=== PATIENT | female | born 1940 | race Caucasian/White ===

== ENCOUNTER → 2017-04-04 | Outpatient (CLI) | payer MEDICARE | END | disposition home or self-care (01) | LOC: RAD 13:30 | DX: M47.896 Other spondylosis, lumbar region (principal); M25.78 Osteophyte, vertebrae ==

== ENCOUNTER → 2017-06-21 | Outpatient (CLI) | payer MEDICARE ==
[2017-06-21 12:23] LABS: BASO % 0.5 % (0.0-1.0); EOS # 0.5 10*3/uL (0.0-0.4); EOS % 5.4 % (1.0-4.0); HEMATOCRIT 39.8 % (37.0-47.0); HEMOGLOBIN 13.2 g/dl (12.0-16.0); LYMPH # 1.5 10*3/uL (1.3-4.4); LYMPH % 18.2 % (27.0-41.0); MEAN CELL VOLUME 89.4 fl (81.0-99.0); MEAN CORPUSCULAR HGB 29.7 pg (27.0-31.0); MEAN CORPUSCULAR HGB CONC 33.2 g/dl (33.0-37.0); MEAN PLATELET VOLUME 10.3 fl (9.6-12.3); MONO # 0.6 10*3/uL (0.1-1.0); MONO % 6.9 % (3.0-9.0); NEUT # 5.8 10*3/uL (2.3-7.9); NEUT % 68.6 % (47.0-73.0); PLATELET COUNT AUTOMATED 256 10*3/uL (130-400); RED BLOOD COUNT 4.45 10*6/uL (4.10-5.10); RED CELL DISTRI WIDTH 13.2 % (0-14.5); WHITE BLOOD COUNT 8.4 10*3/uL (4.8-10.8)
[2017-06-21 12:38] LABS: ALBUMIN 3.5 gm/dl (3.1-4.5); CREATININE 1.44 mg/dL (0.55-1.02); POTASSIUM 3.9 mmol/L (3.5-5.1); TOTAL PROTEIN 7.8 gm/dL (6.4-8.2)
== END | disposition home or self-care (01) ==
LOC: LAB 11:10
PROVIDERS: Student in an Organized Health Care Education/Training Program
DX: I10 Essential (primary) hypertension (principal); R60.9 Edema, unspecified; R06.02 Shortness of breath

== ENCOUNTER → 2017-06-29 | Outpatient (CLI) | payer MEDICARE | END | disposition home or self-care (01) | LOC: CARD 15:45 | DX: R06.02 Shortness of breath (principal) ==

== ENCOUNTER → 2017-11-02 | Outpatient (CLI) | payer MEDICARE ==
[2017-11-02 13:33] LABS: BILIRUBIN NEGATIVE (NEGATIVE); BLOOD TRACE-INTACT (NEGATIVE); CLARITY SL CLOUDY (CLEAR); COLOR YELLOW (YELLOW); GLUCOSE NEGATIVE (NEGATIVE); KETONE NEGATIVE (NEGATIVE); LEUKO ESTERASE NEGATIVE (NEGATIVE); NITRITE NEGATIVE (NEGATIVE); PH 5.5 (5.0-9.0); UROBILINOGEN 0.2 E.U./dl (0.2-1.0)
[2017-11-02 13:37] LABS: BASO % 0.5 % (0.0-1.0); EOS # 0.4 10*3/uL (0.0-0.4); HEMATOCRIT 40.5 % (37.0-47.0); HEMOGLOBIN 13.4 g/dl (12.0-16.0); LYMPH # 1.9 10*3/uL (1.3-4.4); MEAN CELL VOLUME 88.6 fl (81.0-99.0); MEAN CORPUSCULAR HGB 29.3 pg (27.0-31.0); MEAN CORPUSCULAR HGB CONC 33.1 g/dl (33.0-37.0); MEAN PLATELET VOLUME 10.7 fl (9.6-12.3); MONO # 0.6 10*3/uL (0.1-1.0); MONO % 7.5 % (3.0-9.0); NEUT # 5.1 10*3/uL (2.3-7.9); NEUT % 63.4 % (47.0-73.0); PLATELET COUNT AUTOMATED 231 10*3/uL (130-400); RED BLOOD COUNT 4.57 10*6/uL (4.10-5.10); RED CELL DISTRI WIDTH 13.3 % (0-14.5)
[2017-11-02 13:47] LABS: URINE CREATININE RANDOM 84.9 mg/dL
[2017-11-02 13:56] LABS: BACTERIA 2+; WBC 0-2 wbc/hpf (0-5)
[2017-11-02 14:07] LABS: ALBUMIN 3.8 gm/dl (3.1-4.5); CREATININE 1.32 mg/dL (0.55-1.02); PHOSPHOROUS 3.6 mg/dL (2.5-4.9); POTASSIUM 4.4 mmol/L (3.5-5.1)
[2017-11-02 14:30] LABS: FERRITIN 225.4 ng/mL (10.0-291.0); PTH INTACT 75.7 pg/mL (18.5-88.0); VITAMIN D, 25-HYDROXY 13.3 ng/mL (30-100)
== END | disposition home or self-care (01) ==
LOC: LAB 12:29 → US 12:30
PROVIDERS: Internal Medicine Nephrology
DX: N25.81 Secondary hyperparathyroidism of renal origin (principal); E11.22 Type 2 diabetes mellitus with diabetic chronic kidney disease; D63.1 Anemia in chronic kidney disease; N18.3 Chronic kidney disease, stage 3 (moderate); N28.1 Cyst of kidney, acquired

== ENCOUNTER 2018-03-06 16:53 | Inpatient (IN) | payer MEDICARE ==
[~2018-03-06] VITALS: Ht 165.1 cm; Wt 86.7 kg
--- NOTE | ~2018-03-06 | CON ---
[place], [place] REPORT OF CONSULTATION [facility]OWN [id number] UN[facility] #: [id number] ROOM: 506 DOCTOR: [facility]ST[facility]VIS [facility] BIR[facility] [birth year] DOS: 03/08/2018 HISTORY OF PRESENT ILLNESS: A 77-year-old female here with bilateral cellulitis. The patient has cellulitis, poor peripheral circulation. The patient appears to have bilateral peripheral edema in both lower extremities and significant disease below the knee also and the flow frequencies markedly depressed, some extend the inlet and mostly the outlet vessels. Both the bilateral superficial femoral appears to be affected. Diffuse atherosclerosis of both lower extremities extends to left dorsalis pedis may be involved and could not do the intervention but knowing the flow frequencies, both lower extremities appears to be affected, even proximal to the dorsalis pedis, probably both inlet and outlet vessels. The patient is a 77-year-old female with history of diabetes, hypertension, hypertensive cardiovascular disease and came due to the left big toe discomfort progressively gotten worse, had injury also in the past and progressive swelling. The patient is on Keflex as kept by the radiology ct technologist. No fever or chills, came to the Emergency Room. Ultrasound of the lower extremities with flow frequency markedly depressed with diffuse bilateral lower extremity disease is considered. However, they could not do the intervention because of the discomfort. The patient also has chronic kidney disease stage 3. GFR is less than 60. PAST MEDICAL HISTORY: The patient has type 2 diabetes and history of glaucoma. History of nephrolithiasis, dyslipidemia, hypertension, osteoarthritis, probably related to ischemia. The patient has transient ischemic attack of the brain, vitamin D deficiency. PAST SURGICAL HISTORY: The patient has appendectomy, cholecystectomy, hysterectomy, tubal ligation. SOCIAL HISTORY: No alcohol consumption. No history of smoking. No illicit drugs. FAMILY HISTORY: Father with cardiovascular disease, coronary artery disease. Mother of myocardial infarction, coronary artery disease, and diabetes mellitus. The patient has strong family history for atherosclerosis and history of severe coronary artery disease. MEDICATIONS: Aspirin, timolol drops, gabapentin, insulin NovoLog 70/30, lisinopril, and ranitidine for the heart burn. PHYSICAL EXAMINATION: VITAL SIGNS: Blood pressure 176/73, heart rate is 89, afebrile, and respiration rate is 17. NECK: No jugular venous noted. LUNGS: Diminished breath sounds at bases. HEART: S1, S2 regular. ABDOMEN: Soft. SKIN: Color is good, not diaphoretic. No cyanosis. EXTREMITIES: Diminished pulses in the lower extremities. NEUROLOGIC: Cognition is good. [place], [place] REPORT OF CONSULTATION NAME: DAYLIN BROWN UNIT #: [id number] ROOM: 506 DOCTOR: CONSTANCE PURVIS [facility] BIR[facility]: [birth year] RECTAL, GENITAL AND BREASTS: Deferred, unrelated. I explained to the patient there is a possibility of bilateral peripheral arterial disease. Dr. Dillon to drain the abscess and after stabilizing, Dr. Dillon and the Podiatry to decide when the patient needs to have the aortobifemoral angiogram while the desulphurizer operator following the patient closely to choose the contrast-induced nephropathy and progression of the renal insufficiency. We will be very careful to hydrate the patient prior to doing any angiogram and explained to the patient options, procedures, complications, morbidity and mortality. The patient also has redness of the right great toe and swelling. Underlying abscess cannot be excluded along with probably to some extent contributed by the trauma and also peripheral vascular disease. LABORATORY DATA: Electrolytes are unremarkable. Creatinine is 1.64, BUN is 31. GFR is 36, glucose 120, lactic acid. DIAGNOSES: Cellulitis and peripheral arterial disease and infection abscess. Podiatry is on the case and also hospitalist on the case. Type 2 diabetes and stage 3 chronic kidney disease with diminished GFR, obese individual, hypertensive cardiovascular disease, glucose intolerance, elevated C-reactive protein, probably from the infection and ischemia, failure of the outpatient management of this patient because of multisystem involved. Guarded prognosis, especially with the wound on the big toe along with both inlet and outlet vessels and the distal peripheral arterial disease is considered. Workup is in progress and co-working with the hospitalist and the Podiatry Department try to manage the peripheral arterial disease and maintain optimal flow to improve the wound healing. Thank you very much for asking me to see the patient. We will follow the patient. MUSA NOLASCO MD CM:CONSTR:REPORT OF CONSULTATION 1102 04/02/18 0945 interface TOSHIA DILLON DPM
--- NOTE | ~2018-03-06 | PR ---
[place], [place] PROGRESS NOTE NAME: DAYLIN BROWN [facility] #: [id number] UNIT #: [id number] ROOM: 506 DOCTOR: ROBIN GARZA DPM BIRTHDATE: [birth year] DOS: 03/09/2018 SUBJECTIVE: The patient is seen today for followup of I and D and bone biopsy of the left great toe. She is having a lot of problems with diarrhea, Medicine is aware of this and they are checking for C. diff. She admits to only occasional pain in the foot. Denies fever. OBJECTIVE: Neurovascular status is unchanged. Left great toe has decreased edema and erythema with no drainage noted from the distal portion of the great toe. Wound is present that is clean at this time. No expressible drainage, no malodor. Still sinus tract noted, but the previous erythema in the forefoot is now almost localized just to the toe. Area is improving nicely. ASSESSMENT: Status post I and D, bone biopsy, left great toe for infected diabetic foot ulcer. PLAN: Packing and dressing is changed. Continue with wound care. Continue with IV antibiotics. Internal Medicine is working up with diarrhea. They will notify Infectious Disease as well. We will continue to follow the foot. Discussed with her the possibility of partial amputation of the great toe if conservative care with antibiotics and wound care does not work. Follow up with the patient while in the hospital. ROBIN GARZA DPM CM:PNTRANS [id number] ROBIN GARZA DPM 03/10/18 0726 interface
--- NOTE | ~2018-03-06 | O ---
[place], [place] OPERATIVE NOTE NAME: DAYLIN BROWN [facility] #: [id number] UNIT #: [id number] ROOM: 506 DOCTOR: ROSALIO DILLON DPM BIRTHDATE: [birth year] DOS: 03/08/2018 PREOPERATIVE DIAGNOSIS: Abscess/osteomyelitis, first left toe distal aspect. POSTOPERATIVE DIAGNOSIS: Abscess/osteomyelitis, first left toe distal aspect, pending pathology. PROCEDURE: Incision and drainage, distal first left toe with bone biopsy and debridement. SURGEON: Rosalio Dillon DPM. QUALITY SYSTEMS SPECIALIST: Mark Cerrato DPM. ANESTHESIA: LMAC. PACKING: Quarter inch plain packing. DRAINS: None. COMPLICATIONS: None. PROCEDURE DETAILS: The patient was brought to the operating room, placed on the operating room table in supine position. Local anesthesia consisting of 10 mL 0.5% Marcaine plain was utilized for local block of the left hallux. The left foot was prepped and draped in usual aseptic manner. No tourniquet was utilized. Attention was directed to ulceration at the distal left hallux where a sinus tract was noted and followed down to the level of the distal phalanx and the first left toe. An incision was performed through the sinus tract with a 15 blade approximately 1.5 cm in diameter. The necrotic non viable tissue was debrided with a rongeur. Cultures taken of the soft tissue consisting of gram stain, aerobic, anaerobic, acid fast and fungal cultures. Next, the Jamshidi needle and rongeur was utilized to resect bone from the distal phalanx. Bone specimens were sent to pathology and for the same culture separately. The area was flushed with sterile saline. Quarter inch plain packing was applied to the surgical site along with wet to dry dressing with 4 x 4s, Kerlix and Colt bandage. The patient tolerated the procedure and anesthesia well and left the OR with vital signs stable and neurovascular status intact. Total blood loss was approximately 2 mL. The patient will return to the nursing unit, resume previous orders. Continue antibiotics from Infectious Disease. Dr. Baldwin had seen the patient for a vascular consultation. We will transfer the patient early next week after improvement with the cellulitis for possible revascularization and after which possible amputation of the toe if warranted. The patient was not a candidate today due to insufficient circulation. The patient made aware of this and returns in a nursing unit. Orders for reinforced dressing and elevate left foot. The patient will be seen tomorrow by Dr. Lock. [place], [place] OPERATIVE NOTE NAME: DAYLIN BROWN UNIT #: [id number] ROOM: [facility] DOCTOR: ROSALIO DILLON DPM BIRTHDATE: [birth year] ROSALIO DILLON DPM CM:OPRECORD:OPERATIVE NOTE [phone] ROSALIO DILLON DPM 03/23/18 0916 interface
--- NOTE | ~2018-03-06 | PR ---
[place], [place] PROGRESS NOTE NAME: DAYLIN BROWN [facility] #: [id number] UNIT #: [id number] ROOM: 506 DOCTOR: ANNE ALVAREZMAY BIRTHDATE: [birth year] DOS: SUBJECTIVE: The patient is a 77-year-old female being followed for osteomyelitis of her left great toe. She has also been having diarrhea. Her stool for C. diff has come back negative. The oral vancomycin has already been stopped. She has been receiving vancomycin and Zosyn pending results of her biopsy. Thus far, all of her cultures are only growing Morganella. She also has peripheral arterial disease and is to be transferred to [place] for evaluation and intervention by her vascular surgeon. She is alert, is still having loose stools, though that is better than yesterday. Denies any abdominal pain or cramps. Does have neuropathy pain of her legs. She has been afebrile. No nausea or vomiting. She does not feel well. Currently, she just returned from the bathroom, feels as if her blood sugar might be low. I did discuss this with nursing who will check it. Further review of systems is unremarkable. LABORATORY DATA: Cultures as reviewed above. No new labs today. PHYSICAL EXAMINATION: VITAL SIGNS: Temperature 98.0, pulse 85, respirations 20, BP 142/77. GENERAL: A 77-year-old female, in no acute distress. HEAD, EYES, EARS, NOSE AND THROAT: Normocephalic, no thrush. LUNGS: Clear to auscultation bilaterally. Respirations even and unlabored. HEART: Regular rhythm. No murmur appreciated. ABDOMEN: Soft, nontender, obese. EXTREMITIES: No edema. Left foot dressed. SKIN: Warm, moist, and no rashes. ASSESSMENT: Left great toe osteomyelitis. Biopsy, pathology and final cultures are pending, currently only growth of Morganella. PLAN: We will continue the vancomycin and Zosyn pending her final culture results. Anticipate transfer soon for vascular intervention in [place]. ADDENDUM I agree with the assessment and plan done by nurse practitioner, Alyssa Rm. I reviewed the labs and imaging and made the necessary changes in the note. ALYSSA RM NON DESTRUCTIVE EVALUATION TECHNICIAN [place], [place] PROGRESS NOTE NAME: DAYLIN BROWN UNIT #: [id number] ROOM: 506 DOCTOR: ANNE ALVAREZMAY BIRTHDATE: [birth year] Denise MD Kandis CM:PNTRANS [phone] MAY ANNE ALVAREZ 03/13/18 0453 interface
[2018-03-06 16:57] VITALS: BP 176/73
[2018-03-06 17:33] LABS: BASO % 0.2 % (0.0-1.0); EOS # 0.1 10*3/uL (0.0-0.4); EOS % 1.5 % (1.0-4.0); HEMATOCRIT 38.8 % (37.0-47.0); HEMOGLOBIN 12.9 g/dl (12.0-16.0); LYMPH # 1.6 10*3/uL (1.3-4.4); MEAN CELL VOLUME 88.4 fl (81.0-99.0); MEAN CORPUSCULAR HGB 29.4 pg (27.0-31.0); MEAN CORPUSCULAR HGB CONC 33.2 g/dl (33.0-37.0); MEAN PLATELET VOLUME 9.9 fl (9.6-12.3); MONO # 0.8 10*3/uL (0.1-1.0); MONO % 9.1 % (3.0-9.0); NEUT # 6.5 10*3/uL (2.3-7.9); NEUT % 71.5 % (47.0-73.0); PLATELET COUNT AUTOMATED 265 10*3/uL (130-400); RED BLOOD COUNT 4.39 10*6/uL (4.10-5.10); RED CELL DISTRI WIDTH 12.6 % (0-14.5); WHITE BLOOD COUNT 9.2 10*3/uL (4.8-10.8)
[2018-03-06 17:41] LABS: ACT PARTIAL THROMBO TIME 26.7 SECONDS (20.8-31.5)
[2018-03-06 17:48] LABS: ALBUMIN 3.2 gm/dl (3.1-4.5); CREATININE 1.64 mg/dL (0.55-1.02); POTASSIUM 3.9 mmol/L (3.5-5.1); TOTAL PROTEIN 8.1 gm/dL (6.4-8.2)
--- NOTE | 2018-03-06 18:09 | NUR ---
VANCO INFUSING AT TIME OF ADMISSION
[2018-03-06 18:41] VITALS: BP 174/71
--- NOTE | 2018-03-06 18:59 | NUR ---
PHYSICIAN WAS NOTIFIED OF DR. GARZA CONSULT. RESPONSE OF NOTIFICATION WAS SPOKE TO RESIDENT, NO NEW ORDERS.. JORGE ALBERTO HOLLY
--- NOTE | 2018-03-06 19:02 | NUR ---
Time: 1826 A 77 year old FEMALE admitted to 5E under services of SOBEIDA EMERSON DO, Pt. arrived via bed from ER. Chief complaint: CELLULITIS. JORGE ALBERTO HOLLY
[2018-03-06 20:00] VITALS: BP 174/71
[2018-03-06] MEDS ORDERED: COMBIGAN 0.2%-0.5 ML OP (20:27)
[2018-03-06] MEDS ORDERED: RANITIDINE HYD300 MG PO (20:28)
[2018-03-06] MEDS ORDERED: ASPIR-TRIN325 MG PO (20:29)
[2018-03-06] MEDS ORDERED: NEURONTIN300 MG PO (20:29)
[2018-03-06] MEDS ORDERED: ZESTORETIC 20-1 EACH PO (20:30)
[2018-03-06] MEDS ORDERED: NOVOLOG 70/30 M10 ML SQ (20:31)
[2018-03-06] MEDS ORDERED: ARTIFICIAL TEA1 EACH OP (20:33)
--- NOTE | 2018-03-06 20:43 | NUR ---
CALLED AND NOTIFIED DR. OCAMPO MEDICATION RECONILLIATION IS DONE.
--- NOTE | 2018-03-06 23:34 | NUR ---
NEUROTIN GIVEN PER ORDER FOR NEUROPATHY PAIN IN LOWER LEGS/FEET PER PT. REQUEST. SEE APR.
[2018-03-07] VITALS: BP 142/71
--- NOTE | 2018-03-07 00:30 | NUR ---
NEUROTIN EFFECTIVE FOR PAIN PER PT.
--- NOTE | 2018-03-07 01:12 | NUR ---
24 HR chart check completed.
[2018-03-07 07:50] LABS: BASO % 0.3 % (0.0-1.0); EOS # 0.2 10*3/uL (0.0-0.4); EOS % 3.5 % (1.0-4.0); HEMATOCRIT 36.9 % (37.0-47.0); HEMOGLOBIN 12.1 g/dl (12.0-16.0); LYMPH # 1.7 10*3/uL (1.3-4.4); LYMPH % 24.3 % (27.0-41.0); MEAN CELL VOLUME 88.9 fl (81.0-99.0); MEAN CORPUSCULAR HGB 29.2 pg (27.0-31.0); MEAN CORPUSCULAR HGB CONC 32.8 g/dl (33.0-37.0); MONO # 0.7 10*3/uL (0.1-1.0); MONO % 10.6 % (3.0-9.0); NEUT # 4.2 10*3/uL (2.3-7.9); NEUT % 60.9 % (47.0-73.0); PLATELET COUNT AUTOMATED 261 10*3/uL (130-400); RED BLOOD COUNT 4.15 10*6/uL (4.10-5.10); RED CELL DISTRI WIDTH 12.7 % (0-14.5); WHITE BLOOD COUNT 6.9 10*3/uL (4.8-10.8)
[2018-03-07 08:00] VITALS: BP 129/58
[2018-03-07 08:25] LABS: ALBUMIN 2.8 gm/dl (3.1-4.5); CREATININE 1.67 mg/dL (0.55-1.02); FREE T4 1.3 ng/dl (0.76-1.46); PHOSPHOROUS 3.9 mg/dL (2.5-4.9); POTASSIUM 4.3 mmol/L (3.5-5.1); TOTAL PROTEIN 7.5 gm/dL (6.4-8.2)
[2018-03-07 08:30] LABS: THYROID STIM HORMONE (HS) 0.674 uIU/ml (0.358-4.75)
--- NOTE | 2018-03-07 08:40 | NUR ---
PT RESTING IN BED. RESP-EASY AND REGULAR. C/O LEFT LEG NEUROPATHY PAIN PER PT, RATES PAIN 5 OR 6 ON PAIN SCALE 0-10. MEDICATED WITH NEURONTIN PER PT REQUEST, SEE EMAR. CALL LIGHT IN REACH. TOLERATED ROUTINE MEDS WITH NO PROBLEM. CALL LIGHT IN REACH. SEE SHIFT ASSESSMENT.
[2018-03-07 09:48] LABS: VITAMIN D, 25-HYDROXY 21.1 ng/mL (30-100)
[2018-03-07 12:00] VITALS: BP 102/49
--- NOTE | 2018-03-07 12:00 | NUR ---
SITTING UP IN RECLINER CHAIR WITH FAMILY AT HER SIDE. NO C/O AT THIS TIME. CALL LIGHT IN REACH.
--- NOTE | 2018-03-07 13:09 | NUR ---
DAYLIN BROWN [id number] Please refer to the physician's history and physical for past medical history, comorbid conditions, and allergies. Diagnosis: CELLULITIS Anshul Score: 20,LOW OR NO RISK WOUND DESCRIPTIONS: Location of the wound: left great toe Thickness: Full Size: 0.5cm x 0.5cm x 0.2cm Tunneling: none Undermining: none Sinus Tract: none Presence of Exudate: Purulent Amount: Light Color: Yellow, red Odor: None Periwound Skin Appearance: Normal Wound edges: approximated Pain (associated with wound): none at time of assessment How does patient state this happened? pt stated she has been following with Dr. Lock for the last two months and he stated for her to come to the hosptial. Surface the patient is resting on: Position Pro SKIN PREVENTION RECOMMENDATION: 1. Pressure redistribution support surface as appropriate 2. Elevate heels 3. Remove boots/TEDS every shift and reapply 4. Head of bed 30 degrees as tolerated 5. Assess nutrition and hydration 6. Manage moisture 7. Avoid the use of containment devices while in bed 8. Use absorptive products on surfaces limit layers of linens on bed 9. Turn and reposition every 1-2 hours in bed and every 1 hour in chair as tolerated 10. Weight shifts every 15 minutes while up in chair 11. Offloading with pillows or device to keep heels elevated off bed 12. Monitor skin at least every shift 13. Inspect under medical devices twice a day WOUND TREATMENT RECOMMENDATIONS: Venous and arterial studies. X-ray of left foot for non-healing wound. Full thickness guidelines: Cleanse left great toe with nss and apply sureprep around the wound therahoney to wound bed and cover with dsd daily. Consult podiatry for possible debridement if studies allow.
--- NOTE | 2018-03-07 13:27 | NUR ---
Steam Meter Reader in to talk to patient. Patient states lives at HOME with ALONE. There are NO steps in the home. Physician: POEWR Pharmacy: Home health services: NONE Patient's level of ADLs: INDEPENDENT Patient has working utilities: YES DME: [facility] Follow-up physician's appointment after d/c: WILL BE MADE BY HOSPITALIST NURSE DIRECTOR ON DISCHARGE Does patient want to access PORTAL?: NO Discharge plan PT LIVES AT HOME ALONE AND IS INDEPENDENT IN CARE. DISCUSSED HOME HEALTH WITH PT BUT SHE STATES SHE DOES NOT NEED IT AT THIS TIME, BUT SHE WILL THINK ABOUT IT. STATES SHE HAS A WALKER AND CANE AT HOME AND SHE GETS ALONG WELL. WILL CONTINUE TO FOLLOW.. DERICK DOYLE
--- NOTE | 2018-03-07 13:35 | NUR ---
Spoke with Dr. Vargas notified of wound care recommendations he stated to call podiatry.
--- NOTE | 2018-03-07 13:46 | NUR ---
SPOKE WITH DR JACKSON REGARDING WOUND CARE RECOMMENDATIONS. HE STATED TO GO AHEAD AND PUT THE DRESSING ORDERS IN
--- NOTE | 2018-03-07 14:01 | NUR ---
Occupational Therapy evaluation completed on 5 with full eval to follow. Precautions include left wound w/ surgical intervention 03/08/18, fall risk,LA JOLLA, low vision deficits, glaucoma. Patient is moderate complexity level [id number] via chart reveiw, testing and evaluation. Recommend OT per POC and return home with home health OT,PT,SN as indicated upon d/c. Thank you for this referral. Pearl Gonzalez OTR/l
--- NOTE | 2018-03-07 14:42 | NUR ---
PHYSICAL THERAPY PAtient evaluated on 5, full evaluation to follow. Continue with PT as per plan of care with fall and osteomyletius left foot precautions. Will require WB status permitted after surgey 03/08/18. Home with home health RN and PT and family assist [facility] SNF, pending needs and progress after surgey 03/08/18. Patient is high complexity via chart review, tests and evaluation: [id number]. Thank you for this referral. Susi Caraballo,PT
--- NOTE | 2018-03-07 15:20 | NUR ---
PAGED DR. NOLASCO REGARDING CONSULT. THEY WILL PAGE HIM TO CALL.
[2018-03-07 16:00] VITALS: BP 115/70
--- NOTE | 2018-03-07 16:30 | NUR ---
DR. JACKSON IN ROOM WITH PT. DRESSING CHANGED.
--- NOTE | 2018-03-07 18:00 | NUR ---
SITTING UP IN BED. TOLERATED ROUTINE IV MED IWTH NO PROBLEM. CALL LIGHT IN REACH.
[2018-03-07 20:00] VITALS: BP 131/61
--- NOTE | 2018-03-07 23:10 | NUR ---
24 HR chart check completed.
[2018-03-08] VITALS (8 sets, daily range): BP systolic 123–160; BP diastolic 63–77
--- NOTE | 2018-03-08 | NUR ---
PT. WEARING HEAVY ROBE WITH MULTIPLE BLANKETS OVER HER. WILL RECHECK TEMP.
--- NOTE | 2018-03-08 00:12 | NUR ---
NEUROTIN GIVEN PER ORDER FOR PAIN LEGS/FOOT. SEE MAR.
--- NOTE | 2018-03-08 01:15 | NUR ---
NEUROTIN EFFECTIVE FOR PAIN PER PT.
--- NOTE | 2018-03-08 02:57 | NUR ---
PT. AWAKEND TO GO TO BATHROOM. TEMP. RECHECKED 98.9 ORALLY.
--- NOTE | 2018-03-08 03:15 | NUR ---
BATH DONE AND BED LINENS CHANGED.
[2018-03-08 06:41] LABS: BASO % 0.3 % (0.0-1.0); EOS # 0.2 10*3/uL (0.0-0.4); EOS % 3.2 % (1.0-4.0); HEMATOCRIT 34.2 % (37.0-47.0); LYMPH % 26.6 % (27.0-41.0); MEAN CORPUSCULAR HGB 28.9 pg (27.0-31.0); MEAN CORPUSCULAR HGB CONC 32.2 g/dl (33.0-37.0); MONO # 0.7 10*3/uL (0.1-1.0); MONO % 9.3 % (3.0-9.0); NEUT # 4.6 10*3/uL (2.3-7.9); NEUT % 60.1 % (47.0-73.0); PLATELET COUNT AUTOMATED 240 10*3/uL (130-400); RED CELL DISTRI WIDTH 12.9 % (0-14.5); WHITE BLOOD COUNT 7.6 10*3/uL (4.8-10.8)
[2018-03-08 07:05] LABS: CREATININE 1.95 mg/dL (0.55-1.02); POTASSIUM 4.2 mmol/L (3.5-5.1)
--- NOTE | 2018-03-08 09:22 | NUR ---
PHYSICAL THERAPY Partient seen 1:1 this AM. Patient ID by name and . Patient having surgery today at 11:30. Current pain in L foot 2/10. Patient ambulated with fww and CGA/SBA in hallway 75' x2, 30' x1 in room. Cues for walker approximation, no sig LOB noted. Patient completed seated therex reps x15 with cues for speed/form including LAQ, marches, hip abd, ankle pumps, repeated STS x10 for strength and activity tolerance. Patient in NAD following session, returned back to supine in bed. Continue per PT POC as tolerated. Treatment tx 25min. Marta Peña, MAINTENANCE LEADER
--- NOTE | 2018-03-08 11:27 | NUR ---
PT IS GOING TO OR TODAY. WILL TALK TO HER AGAIN AFTER OR ABOUT POSSIBLE SNF OR HOME HEALTH.
--- NOTE | 2018-03-08 12:57 | NUR ---
OT NOTE Attempted to see pt this P.M. for Ot session and upon arrival pt was supine in bed. Pt stated she had just returned from surgery and was wanting to rest. Will continue with POC as able. ALEYDA Christianson
--- NOTE | 2018-03-08 13:35 | NUR ---
PHYSICAL THERAPY Orders received for WBAT in post op shoe. Thank you. Susi Caraballo,PT
--- NOTE | 2018-03-08 16:02 | NUR ---
PATIENT DENIES PAIN AT THIS TIME. SITTING UP ON BED. NO S/S OF DISTRESS. RESP EASY. CALL LIGHT WITHIN REACH.
--- NOTE | 2018-03-08 20:19 | NUR ---
DRY COUGH NOTED.
--- NOTE | 2018-03-08 20:25 | NUR ---
UP TO BAHROOM, SPIT UP SMALL ANOUNT CLEAR LIQUID/MUCOUS.
--- NOTE | 2018-03-08 21:05 | NUR ---
ZOFRAN GIVEN PER ORDER FOR NAUSEA/VOMITING. PT. HAD LARGE EMESIS. PT. CLEANED UP AND ROOM CLEANED.
--- NOTE | 2018-03-08 22:09 | NUR ---
24 HR chart check completed.
[2018-03-09] VITALS: BP 146/66
--- NOTE | 2018-03-09 00:10 | NUR ---
UP TO BATHROOM HAD LARGE LOOSE AND MUSHY BROWN AND UNDIGESTED FOOD STOOL. ALSO HAD SMALL TO MODERATE GREENISH EMESIS. PT. CLEANED UP BEDLINENS CHANGED.
--- NOTE | 2018-03-09 00:15 | NUR ---
CALLED AND SPOKE WITH DR. MARTINEZ AND NOTIFIED HIM OF DIARRHEA AND VOMITING. AT ZOFRAN WAS GIVEN WITH NO RELIEF.
--- NOTE | 2018-03-09 01:47 | NUR ---
PHENERGAN GIVEN PER ORDER FOR NAUSEA/VOMITING. SEE MAR.
--- NOTE | 2018-03-09 02:45 | NUR ---
PHENERGAN EFFECTIVE FOR N/V
[2018-03-09 06:47] LABS: BASO % 0.1 % (0.0-1.0); EOS % 0.4 % (1.0-4.0); LYMPH # 1.1 10*3/uL (1.3-4.4); LYMPH % 11.4 % (27.0-41.0); MEAN CELL VOLUME 91.2 fl (81.0-99.0); MEAN CORPUSCULAR HGB CONC 31.8 g/dl (33.0-37.0); MONO # 0.4 10*3/uL (0.1-1.0); MONO % 3.7 % (3.0-9.0); NEUT # 8.4 10*3/uL (2.3-7.9); NEUT % 83.8 % (47.0-73.0); PLATELET COUNT AUTOMATED 310 10*3/uL (130-400); RED BLOOD COUNT 4.52 10*6/uL (4.10-5.10); RED CELL DISTRI WIDTH 12.9 % (0-14.5)
[2018-03-09 06:49] LABS: HEMATOCRIT 41.2 % (37.0-47.0)
[2018-03-09 06:50] LABS: HEMOGLOBIN 13.1 g/dl (12.0-16.0)
[2018-03-09 06:56] LABS: CREATININE 1.61 mg/dL (0.55-1.02); POTASSIUM 4.2 mmol/L (3.5-5.1)
--- NOTE | 2018-03-09 07:30 | NUR ---
LARGE LIQUID STOOL. PT. CLEANED UP.
[2018-03-09 08:00] VITALS: BP 136/56
--- NOTE | 2018-03-09 09:43 | NUR ---
I spoke with Dr. Cerrato regarding dressing being soiled due to patient having diarrhea he stated to apply dsd until he see her today.
--- NOTE | 2018-03-09 10:15 | NUR ---
OT NOTE Attempted to see pt this A.M. for OT session. Per pt's nurse pt is not to be seen at this time due to increased diarrhea and needing to stay in bed. Will continue with POC as able. LAKISHA Christianson/Robbie
--- NOTE | 2018-03-09 11:04 | NUR ---
PHYSICAL THERAPY Patient's NURSE RN KRYSTIAN says patient has severe Diarrhea and will need to rest and no thave therapy today. NO therapy provided for this reason today. ELAN RONDON PATTERNMAKER
[2018-03-09 12:00] VITALS: BP 132/50
--- NOTE | 2018-03-09 12:28 | NUR ---
PER NOTE PT IS GOING TO [facility] MONDAY FOR REVASCULAZATION. WILL CONTINUE TO FOLLOW.
--- NOTE | 2018-03-09 13:54 | NUR ---
Face to face encounter with Dr. Cerrato regarding Infectious Disease consult and wound care orders.
[2018-03-09 14:07] LABS: ACID FAST SPEC PROCESSING Tissue Grinding (.)
--- NOTE | 2018-03-09 14:42 | NUR ---
Left a message with Angella at Dr. Thompson office regarding consult for osteomylitis. She is to call back and let us know if it will be Dr. Luis or Alyssa Rm.
--- NOTE | 2018-03-09 14:50 | NUR ---
Dr. Luis called back. She wanted to know what ABx patient is on and she will follow up at patients bedside.
[2018-03-09 16:00] VITALS: BP 127/59
[2018-03-09 20:00] VITALS: BP 129/67
--- NOTE | 2018-03-09 20:25 | NUR ---
PT RESTING IN BED AT THIS TIME. RESPIRATIONS EASY AND UNLABORED. NO COMPLAINTS VOICED. IV ZOSYN INFUSING PER ORDERS. DRESSING TO LEFT LEG C/D/I. PT DENIES PAIN TO LEFT FOOT AT THIS TIME. WILL CONTINUE TO MONITOR. CALL LIGHT IN REACH.
--- NOTE | 2018-03-09 21:26 | NUR ---
PT GIVEN NEURONTIN 300 MG FOR C/O NERVE PAIN TO BLE. WILL MONITOR FOR EFFECTIVENESS. ALL OTHER HS MEDICATIONS TAKEN WITH EASE. WILL CONTINUE TO MONITOR. CALL LIGHT IN REACH.
--- NOTE | 2018-03-09 22:26 | NUR ---
NEURONTIN EFFECTIVE FOR NERVE PAIN TO LEGS/FEET PER PT.
[2018-03-10] VITALS: BP 130/69
--- NOTE | 2018-03-10 02:30 | NUR ---
PT GIVEN IV ZOSYN PER ORDERS. PT HOB ELEVATED AND GIVEN DRINK OF WATER PER REQUEST. RESPIRATIONS EASY AND UNLABORED. PT DENIES PAIN OR DISTRESS. WILL CONTINUE TO MONITOR. CALL LIGHT IN REACH.
[2018-03-10 08:00] VITALS: BP 140/48
--- NOTE | 2018-03-10 10:42 | NUR ---
PHYSICAL THERAPY PT SUPINE IN BED UPON ARRIVAL READING BOOK. PT IDENTIFIED BY NAME AND . PT AGREED TO ALL PT TREATMENT THIS A.M. PT PERFORMED BED MOBILITY (I) AND SAFELY. PT PERFORMED STS TO AND FROM BED AND TOILET WITH PROPER TECHINQUE AND SAFETY. PT GAIT TRAINED 20FTX2 WITH FWW AND SBA WITH OP SHOE ON. PT REPORTS SHE HAS NO PAIN THIS A.M. PT SUPINE IN BED WITH CALL LIGHT ON BED TO HER RIGHT SIDE END OF TREATMENT SESSION. PT SEEN 1:1 FOR 14MINS. ELIZABETH PASCUAL PTA
[2018-03-10 12:00] VITALS: BP 142/77
[2018-03-10 16:00] VITALS: BP 158/82
[2018-03-10 20:00] VITALS: BP 152/88
--- NOTE | 2018-03-10 20:00 | NUR ---
IV started left antecubital with #22 protective cath after 1 attempts. Site prepped with Chloroprep. Sterile dressing applied. Patient tolerated procedure well. IV antibiotics infusing with ease at this time. CASSIE NAYLOR
--- NOTE | 2018-03-10 20:05 | NUR ---
Patients dressing was changed. Site is clean, toe is red swelling is going down, drainage is serousanginous with no oder. Patient tolerated well.
--- NOTE | 2018-03-10 22:00 | NUR ---
HS MEDICATIONS GIVEN AT THIS TIME. ASSESSMENT COMPLETE AND PT BED CHANGED DUE TO MULTIPLE EPISODES OF DIARRHEA. RESPIRATIONS EASY AND UNLABORED ON ROOM AIR, LUNGS CTA. WILL CONTINUE TO MONITOR. CALL LIGHT IN REACH.
[2018-03-11] VITALS: BP 112/62
--- NOTE | 2018-03-11 04:00 | NUR ---
DR MARSH NOTIFIED THAT PT BUTTOCKS IS REDDENED/BLANCHABLE DUE TO MULTIPLE EPISODES OF BOWEL INCONTINENCE. NEW ORDERS RECEIVED FOR CALMOSEPTINE. SEE EMAR. PT AWARE.
--- NOTE | 2018-03-11 07:52 | NUR ---
24 HR chart check completed.
[2018-03-11 08:00] VITALS: BP 164/78
--- NOTE | 2018-03-11 08:55 | NUR ---
Relayed message to ZOE Escoto that I contacted on 03-10 regarding status of patients transfer and he did not return my call, and Dr. Ricardo requested that information. RN assigned to case today to follow up.
--- NOTE | 2018-03-11 09:30 | NUR ---
DR SANTILLAN HERE TO ASSESS PATIENT AND DISCUSS PLAN OF CARE. DR SANTILLAN TO CONTACT DR NOLASCO REGARDING PLAN OF CARE
--- NOTE | 2018-03-11 09:30 | NUR ---
SITTING AT BEDSIDE EATING BREAKFAST. NO ACUTE DISTRESS NOTED. RESPIRATIONS EASY. LUNGS DIMINISHED, CLEAR. CLAIMS INFREQUENT COUGH. ABD DISTENDED WITH NORMOACTIVE BOWEL SOUNDS, CONTINUES TO C/O DIARRHEA - 1 TIME DOSE IMODIUM GIVEN. DRESSING MAINTAINED TO LEFT FOOT. CALL LIGHT WITHIN REACH. NO VOICED COMPLAINTS. BED ALARM MAINTAINED FOR SAFETY
--- NOTE | 2018-03-11 09:36 | NUR ---
PER DR SANTILLAN, SPOKE WITH DR NOLASCO. PATIENT TO BE TRANSFERRED TODAY PENDING BED AVAILABILITY
[2018-03-11 12:00] VITALS: BP 151/73
--- NOTE | 2018-03-11 12:50 | NUR ---
SCIENTIFIC PROGRAMMER CALLED [facility] TO INQUIRE REGARDING TRANSFER. [facility] HAS NOT HEARD FROM DR NOLASCO AND UNAWARE OF PENDING TRANSFER. WILL CONTACT DR NOLASCO TO VERIFY
--- NOTE | 2018-03-11 13:40 | NUR ---
[facility] unable to make rounds today, rn to do dressing change. informed of probable d/c to [facility] for vascular; ok for dd/c from podiatry standpoint, f/u out-pt
--- NOTE | 2018-03-11 14:00 | NUR ---
DR SANTILLAN ON FLOOR AND INFORMED DR NOLASCO HAS YET TO ARRANGE TRANSFER OF PATIENT TO [facility] FOR REVASCULARIZATION
[2018-03-11 16:00] VITALS: BP 156/72
--- NOTE | 2018-03-11 16:20 | NUR ---
ATTEMPTED TO REACH DR NOLASCO VIA CELL PHONE X 2, PHONE RANG BUSY IMMEDIATELY. ANSWERING SERVICE CONTACTED AND TRANSFERRED TO DR NOLASCO'S CELL. PER DR NOLASCO, HE WILL CALL [facility] AND ARRANGE TRANSFER.
--- NOTE | 2018-03-11 17:45 | NUR ---
ROSALINE RODRÍGUEZ FROM INFECTIOUS DISEASE HERE, AWARE OF PENDING TRANSFER
--- NOTE | 2018-03-11 17:53 | NUR ---
DR NOLASCO CALLED IN STATING HE HAS SPOKEN TO [facility]. INFORMED PATIENT OK FOR D/C FROM PODIATRY STANDPOINT AND WOULD NOT NEED TO BE TRANSFERRED BACK TO [facility]
--- NOTE | 2018-03-11 19:00 | NUR ---
D/C WOUND PICS TAKEN. WOUND REDRESSED PER PODIATRY ORDERS
--- NOTE | 2018-03-11 19:40 | NUR ---
patient transported via [facility] with belongings intact. no complaints or s/s of distress.
--- NOTE | 2018-03-11 19:40 | NUR ---
report given to jeronimo at [facility] on the 6th floor. all questions answered.
--- NOTE | 2018-03-11 23:25 | NUR ---
SNEHA FROM PHARMACY AT [facility] CALLED ABOUT PATIENT'S NEXT VANC TROUGH.
--- NOTE | 2018-03-12 07:56 | NUR ---
OCCUPATIONAL THERAPY CO-SIGN I approve of the Occupational Therapy notes written above. FRAN ARTHUR
--- NOTE | 2018-03-19 08:10 | NUR ---
PHYSICAL THERAPY CO-SIGN I approve of the Phyical Therapy notes written above. PAWAN LYLE PT
[2018-04-19 12:07] LABS: ACID FAST CULTURE Negative (.)
== END 2018-03-11 19:40 | disposition short-term general hospital (02) | DRG 988 ==
LOC: ED 16:53 → EDHOLD 17:24 → 5E 17:24
PROVIDERS: Internal Medicine; Internal Medicine Nephrology; Nurse Practitioner Family; Podiatrist; ADMIT Internal Medicine
PROC: 0HBNXZZ Excision of Left Foot Skin, External Approach (ICD-10-PCS; principal; 2018-03-08)
PROC: 0QBR0ZX Excision of Left Toe Phalanx, Open Approach, Diagnostic (ICD-10-PCS; principal; 2018-03-08)
DX: E11.69 Type 2 diabetes mellitus with other specified complication (principal); M86.8X7 Other osteomyelitis, ankle and foot; L03.116 Cellulitis of left lower limb; E87.1 Hypo-osmolality and hyponatremia; E11.621 Type 2 diabetes mellitus with foot ulcer; E11.51 Type 2 diabetes mellitus with diabetic peripheral angiopathy without gangrene; L97.529 Non-pressure chronic ulcer of other part of left foot with unspecified severity; E66.9 Obesity, unspecified; D72.810 Lymphocytopenia; M79.2 Neuralgia and neuritis, unspecified; E11.65 Type 2 diabetes mellitus with hyperglycemia; H40.9 Unspecified glaucoma; E11.22 Type 2 diabetes mellitus with diabetic chronic kidney disease; B96.89 Other specified bacterial agents as the cause of diseases classified elsewhere; N18.3 Chronic kidney disease, stage 3 (moderate); E55.9 Vitamin D deficiency, unspecified; M19.90 Unspecified osteoarthritis, unspecified site; I12.9 Hypertensive chronic kidney disease with stage 1 through stage 4 chronic kidney disease, or unspecified chronic kidney disease; Z79.4 Long term (current) use of insulin; Z78.9 Other specified health status; Z68.31 Body mass index [BMI] 31.0-31.9, adult; Z88.1 Allergy status to other antibiotic agents; Z88.2 Allergy status to sulfonamides; Z90.49 Acquired absence of other specified parts of digestive tract; Z90.710 Acquired absence of both cervix and uterus; Z98.51 Tubal ligation status; Z86.73 Personal history of transient ischemic attack (TIA), and cerebral infarction without residual deficits; Z82.49 Family history of ischemic heart disease and other diseases of the circulatory system; Z83.3 Family history of diabetes mellitus; Z79.82 Long term (current) use of aspirin; Z79.899 Other long term (current) drug therapy

== ENCOUNTER → 2018-10-26 | Outpatient (CLI) | payer MEDICARE ==
[~2018-10-26] MED LIST: ARTIFICIAL TEA1 EACH OP; ASPIR-TRIN325 MG PO; COMBIGAN 0.2%-0.5 ML OP; NEURONTIN300 MG PO; NOVOLOG 70/30 M10 ML SQ; RANITIDINE HYD300 MG PO; ZESTORETIC 20-1 EACH PO
[2018-10-26 12:48] LABS: BASO % 0.5 % (0.0-1.0); EOS # 0.3 10*3/uL (0.0-0.4); EOS % 3.3 % (1.0-4.0); HEMATOCRIT 41.4 % (37.0-47.0); HEMOGLOBIN 13.2 g/dl (12.0-16.0); LYMPH # 1.8 10*3/uL (1.3-4.4); LYMPH % 23.5 % (27.0-41.0); MEAN CELL VOLUME 88.3 fl (81.0-99.0); MEAN CORPUSCULAR HGB 28.1 pg (27.0-31.0); MEAN CORPUSCULAR HGB CONC 31.9 g/dl (33.0-37.0); MEAN PLATELET VOLUME 10.7 fl (9.6-12.3); MONO # 0.5 10*3/uL (0.1-1.0); MONO % 6.6 % (3.0-9.0); NEUT % 65.8 % (47.0-73.0); PLATELET COUNT AUTOMATED 256 10*3/uL (130-400); RED BLOOD COUNT 4.69 10*6/uL (4.10-5.10); RED CELL DISTRI WIDTH 14.1 % (0-14.5); WHITE BLOOD COUNT 7.6 10*3/uL (4.8-10.8)
[2018-10-26 12:59] LABS: ALBUMIN 3.6 gm/dl (3.1-4.5); CREATININE 1.55 mg/dL (0.55-1.02); PHOSPHOROUS 3.4 mg/dL (2.5-4.9); POTASSIUM 3.8 mmol/L (3.5-5.1)
[2018-10-26 13:31] LABS: VITAMIN D, 25-HYDROXY 30.1 ng/mL (30-100)
[2018-10-26 13:32] LABS: FERRITIN 186.7 ng/mL (10.0-291.0)
[2018-10-26 18:24] LABS: BILIRUBIN NEGATIVE (NEGATIVE); BLOOD TRACE-LYSED (NEGATIVE); CLARITY CLEAR (CLEAR); COLOR YELLOW (YELLOW); GLUCOSE 1+ (NEGATIVE); KETONE NEGATIVE (NEGATIVE); LEUKO ESTERASE 1+ (NEGATIVE); NITRITE POSITIVE (NEGATIVE); SPECIFIC GRAVITY 1.015 (1.005-1.030); UROBILINOGEN 0.2 E.U./dl (0.2-1.0)
[2018-10-26 18:39] LABS: EPITHELIAL CELLS 51-100; WBC 21-30 wbc/hpf (0-5)
[2018-10-26 18:40] LABS: BACTERIA 2+; RBC 0-2 rbc/hpf (0-2)
== END | disposition home or self-care (01) ==
LOC: LAB 11:47
PROVIDERS: Internal Medicine Nephrology
DX: N25.81 Secondary hyperparathyroidism of renal origin (principal); E11.22 Type 2 diabetes mellitus with diabetic chronic kidney disease; E63.1 Imbalance of constituents of food intake; N18.3 Chronic kidney disease, stage 3 (moderate); Z79.899 Other long term (current) drug therapy

== ENCOUNTER → 2019-07-29 | Outpatient (CLI) | payer MEDICARE ==
[2019-07-29 12:18] LABS: BASO % 0.3 % (0.0-1.0); EOS # 0.2 10*3/uL (0.0-0.4); EOS % 3.1 % (1.0-4.0); LYMPH # 1.8 10*3/uL (1.3-4.4); LYMPH % 23.4 % (27.0-41.0); MEAN CORPUSCULAR HGB 28.4 pg (27.0-31.0); MEAN CORPUSCULAR HGB CONC 31.9 g/dl (33.0-37.0); MEAN PLATELET VOLUME 9.9 fl (9.6-12.3); MONO # 0.6 10*3/uL (0.1-1.0); MONO % 7.6 % (3.0-9.0); NEUT % 65.2 % (47.0-73.0); PLATELET COUNT AUTOMATED 217 10*3/uL (130-400); RED BLOOD COUNT 4.72 10*6/uL (4.10-5.10); RED CELL DISTRI WIDTH 13.2 % (0-14.5); WHITE BLOOD COUNT 7.6 10*3/uL (4.8-10.8)
[2019-07-29 12:42] LABS: ALBUMIN 3.6 gm/dl (3.1-4.5); CREATININE 1.76 mg/dL (0.55-1.02); POTASSIUM 4.4 mmol/L (3.5-5.1)
[2019-07-29 13:42] LABS: FERRITIN 120.8 ng/mL (10.0-291.0); PTH INTACT 93.2 pg/mL (18.5-88.0); VITAMIN D, 25-HYDROXY 24.6 ng/mL (30-100)
[2019-07-29 16:26] LABS: CLARITY SL CLOUDY (CLEAR); COLOR YELLOW (YELLOW)
[2019-07-29 16:27] LABS: BACTERIA 3+; BILIRUBIN NEGATIVE (NEGATIVE); BLOOD NEGATIVE (NEGATIVE); EPITHELIAL CELLS 21-30; GLUCOSE TRACE (NEGATIVE); KETONE NEGATIVE (NEGATIVE); LEUKO ESTERASE 1+ (NEGATIVE); NITRITE NEGATIVE (NEGATIVE); RBC 0-2 rbc/hpf (0-2); SPECIFIC GRAVITY 1.025 (1.005-1.030); UROBILINOGEN 0.2 E.U./dl (0.2-1.0); WBC 31-40 wbc/hpf (0-5)
== END | disposition home or self-care (01) ==
LOC: LAB 11:52
PROVIDERS: Internal Medicine Nephrology
DX: E11.22 Type 2 diabetes mellitus with diabetic chronic kidney disease (principal); N18.3 Chronic kidney disease, stage 3 (moderate); D63.1 Anemia in chronic kidney disease; N25.81 Secondary hyperparathyroidism of renal origin; Z79.899 Other long term (current) drug therapy

== ENCOUNTER → 2020-06-27 | Outpatient (CLI) | payer MEDICARE ==
[2020-06-27 12:39] LABS: BASO % 0.4 % (0.0-1.0); EOS # 0.3 10*3/uL (0.0-0.4); EOS % 4.9 % (1.0-4.0); HEMATOCRIT 42.2 % (37.0-47.0); LYMPH # 1.6 10*3/uL (1.3-4.4); LYMPH % 24.1 % (27.0-41.0); MEAN CELL VOLUME 89.6 fl (81.0-99.0); MEAN CORPUSCULAR HGB 28.9 pg (27.0-31.0); MEAN CORPUSCULAR HGB CONC 32.2 g/dl (33.0-37.0); MEAN PLATELET VOLUME 10.7 fl (9.6-12.3); MONO # 0.5 10*3/uL (0.1-1.0); MONO % 7.4 % (3.0-9.0); NEUT # 4.2 10*3/uL (2.3-7.9); NEUT % 62.9 % (47.0-73.0); PLATELET COUNT AUTOMATED 207 10*3/uL (130-400); RED BLOOD COUNT 4.71 10*6/uL (4.10-5.10); RED CELL DISTRI WIDTH 13.2 % (0-14.5); WHITE BLOOD COUNT 6.7 10*3/uL (4.8-10.8)
[2020-06-27 12:59] LABS: BILIRUBIN Negative (Negative); BLOOD Negative (Negative); CLARITY Clear (Clear); COLOR Yellow (Yellow); GLUCOSE 2+ (Negative); KETONE Negative (Negative); LEUKO ESTERASE 1+ (Negative); NITRITE Negative (Negative); UROBILINOGEN 0.2 E.U./dl (0.0-1.0)
[2020-06-27 13:08] LABS: BACTERIA 3+
[2020-06-27 13:10] LABS: WBC 51-100 wbc/hpf (0-5)
[2020-06-27 13:24] LABS: ALBUMIN 3.7 gm/dl (3.1-4.5); CREATININE 1.92 mg/dL (0.55-1.02); POTASSIUM 4.3 mmol/L (3.5-5.1)
[2020-06-27 13:33] LABS: VITAMIN D, 25-HYDROXY 36.2 ng/mL (30-100)
[2020-06-27 13:34] LABS: FERRITIN 161.4 ng/mL (10.0-291.0); PTH INTACT 81.3 pg/mL (18.5-88.0)
== END | disposition home or self-care (01) ==
LOC: LAB 11:09
PROVIDERS: ATTEND Internal Medicine Nephrology
DX: N18.30 Chronic kidney disease, stage 3 unspecified (principal); D63.1 Anemia in chronic kidney disease; N25.81 Secondary hyperparathyroidism of renal origin; E11.9 Type 2 diabetes mellitus without complications; R82.998 Other abnormal findings in urine

== ENCOUNTER → 2020-12-29 | Outpatient (CLI) | payer MEDICARE ==
[2020-12-29 13:21] LABS: BASO % 0.4 % (0.0-1.0); BILIRUBIN Negative (Negative); BLOOD 1+ (Negative); CLARITY Cloudy (Clear); COLOR Yellow (Yellow); EOS # 0.4 10*3/uL (0.0-0.4); GLUCOSE Trace (Negative); HEMATOCRIT 43.4 % (37.0-47.0); KETONE Trace (Negative); LEUKO ESTERASE 3+ (Negative); LYMPH # 1.8 10*3/uL (1.3-4.4); LYMPH % 22.4 % (27.0-41.0); MEAN CORPUSCULAR HGB 29.1 pg (27.0-31.0); MEAN CORPUSCULAR HGB CONC 33.4 g/dl (33.0-37.0); MEAN PLATELET VOLUME 10.1 fl (9.6-12.3); MONO # 0.6 10*3/uL (0.1-1.0); MONO % 7.2 % (3.0-9.0); NEUT # 5.1 10*3/uL (2.3-7.9); NEUT % 64.7 % (47.0-73.0); NITRITE Positive (Negative); PLATELET COUNT AUTOMATED 223 10*3/uL (130-400); RED BLOOD COUNT 4.99 10*6/uL (4.10-5.10); UROBILINOGEN 0.2 E.U./dl (0.0-1.0); WHITE BLOOD COUNT 7.9 10*3/uL (4.8-10.8)
[2020-12-29 13:49] LABS: BACTERIA 3+; EPITHELIAL CELLS 16-20; WBC TNTC wbc/hpf (0-5)
[2020-12-29 13:50] LABS: ALBUMIN 3.3 gm/dl (3.1-4.5); CREATININE 1.57 mg/dL (0.55-1.02); POTASSIUM 3.5 mmol/L (3.5-5.1)
[2020-12-29 14:12] LABS: FERRITIN 155.9 ng/mL (10.0-291.0); PTH INTACT 72.8 pg/mL (18.5-88.0); VITAMIN D, 25-HYDROXY 37.2 ng/mL (30-100)
== END | disposition home or self-care (01) ==
LOC: LAB 12:46
PROVIDERS: ATTEND Internal Medicine Nephrology
DX: E11.9 Type 2 diabetes mellitus without complications (principal); D63.1 Anemia in chronic kidney disease; N25.81 Secondary hyperparathyroidism of renal origin; Z79.899 Other long term (current) drug therapy

== ENCOUNTER → 2021-12-27 | Outpatient (CLI) | payer MEDICARE ==
[2021-12-27 13:15] LABS: BASO % 0.5 % (0.0-1.0); EOS # 0.2 10*3/uL (0.0-0.4); EOS % 2.9 % (1.0-4.0); HEMATOCRIT 42.6 % (37.0-47.0); LYMPH # 1.6 10*3/uL (1.3-4.4); LYMPH % 24.8 % (27.0-41.0); MEAN CELL VOLUME 87.1 fl (81.0-99.0); MEAN CORPUSCULAR HGB 29.9 pg (27.0-31.0); MEAN CORPUSCULAR HGB CONC 34.3 g/dl (33.0-37.0); MEAN PLATELET VOLUME 10.9 fl (9.6-12.3); MONO # 0.4 10*3/uL (0.1-1.0); MONO % 6.8 % (3.0-9.0); NEUT # 4.1 10*3/uL (2.3-7.9); NEUT % 64.7 % (47.0-73.0); PLATELET COUNT AUTOMATED 185 10*3/uL (130-400); RED BLOOD COUNT 4.89 10*6/uL (4.10-5.10); RED CELL DISTRI WIDTH 12.5 % (0-14.5); WHITE BLOOD COUNT 6.3 10*3/uL (4.8-10.8)
[2021-12-27 13:33] LABS: CREATININE 1.81 mg/dL (0.55-1.02); POTASSIUM 3.9 mmol/L (3.5-5.1)
[2021-12-27 14:31] LABS: VITAMIN D, 25-HYDROXY 42.5 ng/mL (30-100)
[2021-12-27 14:32] LABS: FERRITIN 351.4 ng/mL (10.0-291.0)
== END | disposition home or self-care (01) ==
LOC: LAB 12:41
PROVIDERS: ATTEND Internal Medicine Nephrology
DX: E11.22 Type 2 diabetes mellitus with diabetic chronic kidney disease (principal); N18.30 Chronic kidney disease, stage 3 unspecified; D63.1 Anemia in chronic kidney disease; N25.81 Secondary hyperparathyroidism of renal origin; Z79.899 Other long term (current) drug therapy

== ENCOUNTER → 2022-06-27 | Outpatient (CLI) | payer MEDICARE, MEDICAID ==
[~2022-06-27] MED LIST changes: +HYDROCODONE-AC1 EAC1 PO; +INSULIN AS100 UNIT/5 SC; +OMNICEF300 MG PO
[2022-06-27 12:47] LABS: BASO % 0.4 % (0.0-1.0); EOS # 0.3 10*3/uL (0.0-0.4); EOS % 3.1 % (1.0-4.0); HEMATOCRIT 44.8 % (37.0-47.0); LYMPH # 2.2 10*3/uL (1.3-4.4); LYMPH % 27.1 % (27.0-41.0); MEAN CELL VOLUME 86.3 fl (81.0-99.0); MEAN CORPUSCULAR HGB 29.1 pg (27.0-31.0); MEAN CORPUSCULAR HGB CONC 33.7 g/dl (33.0-37.0); MEAN PLATELET VOLUME 10.2 fl (9.6-12.3); MONO # 0.5 10*3/uL (0.1-1.0); PLATELET COUNT AUTOMATED 235 10*3/uL (130-400); RED BLOOD COUNT 5.19 10*6/uL (4.10-5.10); RED CELL DISTRI WIDTH 12.8 % (0-14.5); WHITE BLOOD COUNT 7.9 10*3/uL (4.8-10.8)
[2022-06-27 12:50] LABS: BILIRUBIN Negative (Negative); BLOOD Trace-Lysed (Negative); CLARITY Cloudy (Clear); COLOR Yellow (Yellow); GLUCOSE 1+ (Negative); KETONE Negative (Negative); LEUKO ESTERASE 3+ (Negative); NITRITE Positive (Negative); UROBILINOGEN 0.2 E.U./dl (0.0-1.0)
[2022-06-27 13:03] LABS: BACTERIA 4+; WBC TNTC wbc/hpf (0-5)
[2022-06-27 13:08] LABS: URINE CREATININE RANDOM 78.44 mg/dL
[2022-06-27 13:09] LABS: POTASSIUM 4.1 mmol/L (3.4-5.1)
[2022-06-27 13:13] LABS: VITAMIN D, 25-HYDROXY 39.3 ng/mL (30-100)
== END | disposition home or self-care (01) ==
LOC: LAB 11:42
PROVIDERS: ATTEND Internal Medicine Nephrology
DX: E11.22 Type 2 diabetes mellitus with diabetic chronic kidney disease (principal); N18.30 Chronic kidney disease, stage 3 unspecified; D63.1 Anemia in chronic kidney disease; N25.81 Secondary hyperparathyroidism of renal origin; Z79.899 Other long term (current) drug therapy

== ENCOUNTER 2022-07-07 11:10 | Emergency (ER) | payer MEDICARE, MEDICAID ==
[2022-07-07] VITALS (9 sets, daily range): BP systolic 136–178; BP diastolic 54–98
[~2022-07-07] VITALS: Wt 74.4 kg
[2022-07-07 13:29] LABS: BASO % 0.2 % (0.0-1.0); HEMATOCRIT 40.7 % (37.0-47.0); LYMPH % 9.1 % (27.0-41.0); MEAN CORPUSCULAR HGB 28.8 pg (27.0-31.0); MEAN CORPUSCULAR HGB CONC 33.9 g/dl (33.0-37.0); MEAN PLATELET VOLUME 9.5 fl (9.6-12.3); MONO % 8.9 % (3.0-9.0); NEUT % 81.3 % (47.0-73.0); PLATELET COUNT AUTOMATED 258 10*3/uL (130-400); RED BLOOD COUNT 4.79 10*6/uL (4.10-5.10); RED CELL DISTRI WIDTH 12.6 % (0-14.5); WHITE BLOOD COUNT 11.1 10*3/uL (4.8-10.8)
[2022-07-07 14:07] LABS: ALKALINE PHOSPHATASE 82 U/L (46-116); BUN 21 mg/dl (9-23); CHLORIDE 96 mmol/L (98-107); CPK 763 U/L (34-171); POTASSIUM 3.6 mmol/L (3.4-5.1); SGPT/ALT 16 U/L (10-49); THYROID STIM HORMONE (HS) 1.258 uIU/ml (0.550-4.780); TOTAL PROTEIN 7.5 gm/dL (6.0-8.0)
[2022-07-07 14:13] LABS: ETHYL ALCOHOL < 3.0 mg/dl (<3)
[2022-07-07 14:39] LABS: BILIRUBIN Negative (Negative); BLOOD 2+ (Negative); CLARITY Clear (Clear); COLOR Yellow (Yellow); GLUCOSE 3+ (Negative); KETONE 1+ (Negative); LEUKO ESTERASE Negative (Negative); NITRITE Negative (Negative); PH 5.5 (4.5-8.0); UROBILINOGEN 0.2 E.U./dl (0.0-1.0)
[2022-07-07 14:55] LABS: EPITHELIAL CELLS 0-2
[2022-07-07 14:56] LABS: BACTERIA TRACE
== END 2022-07-07 17:24 | disposition short-term general hospital (02) ==
LOC: ED 11:10 → EDHOLD 14:44 → ED 14:44
PROVIDERS: Student in an Organized Health Care Education/Training Program
DX: I61.3 Nontraumatic intracerebral hemorrhage in brain stem (principal); R41.82 Altered mental status, unspecified; E11.9 Type 2 diabetes mellitus without complications; E78.5 Hyperlipidemia, unspecified; Z86.73 Personal history of transient ischemic attack (TIA), and cerebral infarction without residual deficits; Z88.2 Allergy status to sulfonamides; Z98.51 Tubal ligation status; Z88.8 Allergy status to other drugs, medicaments and biological substances; Z90.49 Acquired absence of other specified parts of digestive tract; Z90.710 Acquired absence of both cervix and uterus

== ENCOUNTER → 2023-06-07 | Outpatient (CLI) | payer OTHER ==
[2023-06-07 12:45] LABS: BASO % 0.5 % (0.0-1.0); EOS # 0.4 10*3/uL (0.0-0.4); HEMATOCRIT 41.2 % (37.0-47.0); LYMPH # 1.7 10*3/uL (1.3-4.4); LYMPH % 22.7 % (27.0-41.0); MEAN CELL VOLUME 86.6 fl (81.0-99.0); MEAN CORPUSCULAR HGB 27.3 pg (27.0-31.0); MEAN CORPUSCULAR HGB CONC 31.6 g/dl (33.0-37.0); MEAN PLATELET VOLUME 9.9 fl (9.6-12.3); MONO # 0.6 10*3/uL (0.1-1.0); MONO % 7.8 % (3.0-9.0); NEUT # 4.9 10*3/uL (2.3-7.9); NEUT % 63.6 % (47.0-73.0); PLATELET COUNT AUTOMATED 240 10*3/uL (130-400); RED BLOOD COUNT 4.76 10*6/uL (4.10-5.10); RED CELL DISTRI WIDTH 13.2 % (0-14.5); WHITE BLOOD COUNT 7.7 10*3/uL (4.8-10.8)
[2023-06-07 12:52] LABS: BILIRUBIN Negative (Negative); BLOOD 2+ (Negative); CLARITY Turbid (Clear); COLOR Yellow (Yellow); GLUCOSE Negative (Negative); KETONE Negative (Negative); LEUKO ESTERASE 3+ (Negative); NITRITE Negative (Negative); PH 6.5 (4.5-8.0); SPECIFIC GRAVITY 1.015 (1.001-1.030); UROBILINOGEN 0.2 E.U./dl (0.0-1.0)
[2023-06-07 12:59] LABS: URINE CREATININE RANDOM 70.01 mg/dL
[2023-06-07 13:02] LABS: URINE CREATININE RANDOM 69.42 mg/dL
[2023-06-07 13:11] LABS: POTASSIUM 3.6 mmol/L (3.4-5.1); TOTAL PROTEIN 7.2 gm/dL (6.0-8.0)
[2023-06-07 13:13] LABS: VITAMIN D, 25-HYDROXY 53.7 ng/mL (30-100)
[2023-06-07 13:51] LABS: BACTERIA 3+; WBC TNTC wbc/hpf (0-5)
== END | disposition home or self-care (01) ==
LOC: LAB 12:03
PROVIDERS: Family Medicine; ATTEND Internal Medicine Nephrology
DX: E11.22 Type 2 diabetes mellitus with diabetic chronic kidney disease (principal); E11.65 Type 2 diabetes mellitus with hyperglycemia; N18.31 Chronic kidney disease, stage 3a; N25.81 Secondary hyperparathyroidism of renal origin; D63.1 Anemia in chronic kidney disease